=== PATIENT | female | born 1955 | race Caucasian/White ===

== ENCOUNTER 2017-07-14 09:31 | Observation (INO) | payer BC ==
[~2017-07-14 09:31] MED LIST: DEXAMETHASONE SOD PHOS 20 MG/5 ML VIAL.; HYDROmorphone 2 MG/ML VIAL IV; IOHEXOL 300 MG/ML 100ML VIAL.; LIDOCAINE 1% PF 2 ML VIAL. ID; LIDOCAINE 1% PF 5 ML VIAL.; MIDAZOLAM HCL/PF 2 MG/2 ML VIAL.; MORPHINE SULFATE 2 MG/ML DISP.SYRIN. IV; ONDANSETRON PF 4 MG/2 ML VIAL. IV; PROPOFOL 20 ML IV; ROCURONIUM 50 MG/5 ML VIAL.; SURGICEL HEMOSTAT 2X3 EACH.; fentaNYL PF VIAL 100 MCG/2 ML VIAL IV; fentaNYL PF VIAL 250 MCG/5 ML VIAL
[2017-07-14] MEDS: IV RINGERS,LACTATED 1000ML 1,000 ML IV ×2 (10:35→17:38)
[2017-07-14] MEDS: BUPIVACAINE MPF 0.5% 30 ML VIAL. (10:51)
[2017-07-14] MEDS: BISACODYL 10 MG SUPP.RECT. (10:51)
[2017-07-14] MEDS: IOHEXOL 300 MG/ML 100ML VIAL. (10:52)
[2017-07-14] MEDS: LIDOCAINE 1%/EPI 1:100,000 20 ML VIAL. (10:52)
[2017-07-14 10:58] LABS: ADD MAN DIFF? NO
[2017-07-14 11:04] LABS: BASO % 0 % (0-3); EOS % 0 % (0-3); HEMATOCRIT 42.3 % (36.0-47.0); HEMOGLOBIN 13.9 g/dL (12.0-15.5); LYMPH # 1.4 x10^3/uL (1.0-4.8); LYMPH % 14 % (24-48); MEAN CORPUSCULAR HEMOGLOBIN 29 pg (25-35); MEAN CORPUSCULAR HGB CONC 33 g/dL (31-37); MEAN CORPUSCULAR VOLUME 88 fL (79-100); MONO # 0.8 x10^3/uL (0.0-1.1); MONO % 8 % (0-9); NEUT # 8.2 x10^3uL (1.8-7.7); NEUT % 78 % (31-73); PLATELET COUNT 198 x10^3/uL (140-400); RED CELL DISTRIBUTION WIDTH 13.9 % (11.5-14.5); WHITE BLOOD COUNT 10.5 x10^3/uL (4.0-11.0)
[2017-07-14 11:09] LABS: ANION GAP 9 (6-14); BLOOD UREA NITROGEN 13 mg/dL (7-20); BUN/CREATININE RATIO 22 (6-20); CALCIUM 8.8 mg/dL (8.5-10.1); CARBON DIOXIDE 27 mmol/L (21-32); CHLORIDE 103 mmol/L (98-107); CREATININE 0.6 mg/dL (0.6-1.0); GLUCOSE 134 mg/dL (70-99); POTASSIUM 3.4 mmol/L (3.5-5.1); SODIUM 139 mmol/L (136-145)
[2017-07-14 11:16] LABS: ALBUMIN 3.4 g/dL (3.4-5.0); ALBUMIN/GLOBULIN RATIO 0.9 (1.0-1.7); ALK PHOS 63 U/L (46-116); ALT (SGPT) 24 U/L (14-59); AST (SGOT) 10 U/L (15-37); TOTAL BILIRUBIN 0.6 mg/dL (0.2-1.0); TOTAL PROTEIN 7.4 g/dL (6.4-8.2)
[2017-07-14 11:18] LABS: INR 1.1 (0.8-1.1); PROTHROMBIN TIME PATIENT 13.9 SEC (11.7-14.0)
[2017-07-14 11:26] LABS: PARTIAL THROMBOPLASTIN TIME 31 SEC (24-38)
[2017-07-14] MEDS ORDERED: SCOPOLAMINE 1.5MG PATCH. TD (11:28)
[2017-07-14] MEDS: SCOPOLAMINE 1.5MG PATCH. TD (11:30)
[2017-07-14] MEDS: HEPARIN for IV BOLUS 10,000 UNIT/10 ML VIAL. (11:51)
[2017-07-14] MEDS ORDERED: GLYCOPYRROLATE 1 MG/5 ML VIAL. (12:10)
[2017-07-14] MEDS ORDERED: PHENYLEPHRINE in 0.9% NACL PF 1 MG/10 ML SYRINGE. IV (12:12)
[2017-07-14] MEDS ORDERED: SEVOFLURANE 61 TO 120 MINUTES. IH (12:29)
[2017-07-14] MEDS ORDERED: NEOSTIGMINE METHYLSULFATE 5 MG/5 ML SYRINGE. (12:29)
[2017-07-14] MEDS ORDERED: ONDANSETRON PF 4 MG/2 ML VIAL. (12:49)
[2017-07-14] MEDS: PROCHLORPERAZINE 10 MG/2 ML VIAL. IV (13:00)
[2017-07-14] MEDS ORDERED: DEXTROSE 50% 25 GM / 50ML DISP.SYRIN. IV (13:00)
[2017-07-14] MEDS ORDERED: 0.9 % SODIUM CHLORIDE 10 ML DISP.SYRIN. IV (13:00)
[2017-07-14] MEDS ORDERED: ONDANSETRON PF 4 MG/2 ML VIAL. IV (13:00)
[2017-07-14] MEDS ORDERED: oxyCODONE/APAP 5/325 1 TAB TABLET PO (13:00)
[2017-07-14] MEDS: fentaNYL PF VIAL 100 MCG/2 ML VIAL IV ×2 (13:01→13:24)
[2017-07-14] MEDS: KETOROLAC 30 MG/ML INJ. IV (13:22)
[2017-07-14] MEDS ORDERED: traMADol 50 MG TABLET PO (16:00)
[2017-07-14] MEDS: traMADol 50 MG TABLET PO (17:38)
[2017-07-14] MEDS: DOCUSATE SODIUM 100 MG CAPSULE. PO (21:00)
[2017-07-15] MEDS: traMADol 50 MG TABLET PO ×2 (00:18→08:43)
[2017-07-15] MEDS: IV RINGERS,LACTATED 1000ML 1,000 ML IV ×2 (03:18→08:48)
[2017-07-15] MEDS: KETOROLAC 30 MG/ML INJ. IV (08:43)
[2017-07-15] MEDS: DOCUSATE SODIUM 100 MG CAPSULE. PO (09:00)
== END 2017-07-15 13:05 | disposition home or self-care (01) ==
LOC: SURG 09:31 → 4 NORTH 13:00
DX: K80.10 Calculus of gallbladder with chronic cholecystitis without obstruction (principal); I10 Essential (primary) hypertension; F32.9 Major depressive disorder, single episode, unspecified; Z90.710 Acquired absence of both cervix and uterus
CPT/HCPCS: 36415; 74300; 80053; 85025; 85610; 85730; 88304; 93005; 96374; G0378; G0379; J0690; J0780; J1100; J1644; J1885; J2250; J2370; J2405; J2704; J2710; J3010; J3490; J7120; Q9967